=== PATIENT | male | born 1950 | race Caucasian/White ===

== ENCOUNTER 2017-06-16 22:00 | Observation (INO) | payer MEDICARE, BC ==
[2017-06-16] MEDS ORDERED: Aspirin 81 MG Tab.Chew PO ONE (22:11)
[2017-06-16] MEDS ORDERED: Sodium Chloride 0.9% 2.5 ML Syringe FLUSH PRN (22:11)
[2017-06-16] MEDS ORDERED: Sodium Chloride 0.9% 10 ML Syringe FLUSH PRN (22:11)
[2017-06-16] MEDS ORDERED: Nitroglycerin 2% Oint 1 GM UD Packet TOP ONE (22:11)
--- NOTE | 2017-06-16 22:15 | EDM.PDOC ---
ED HPI GENERAL MEDICAL PROBLEM - General Chief Complaint: Chest Pain Stated Complaint: POSSIBLE HEART ATTACK Time Seen by Provider: 06/16/17 22:04 - History of Present Illness INITIAL COMMENTS - FREE TEXT/NARRATIVE: HISTORY AND PHYSICAL: History of present illness: The patient is a 67-year-old male who follows in our clinic and has a history of diabetes hypercholesterolemia hypertension but has never had any cardiac problems or pulmonary problems and presents with episodic left and mid chest pain that squeezing like in character. The patient has had 4 total episodes of this discomfort starting on evening each episode lasting about an hour in duration. The patient states it occurs at nighttime and he normally will take Tums some Motrin and Tylenol and will go away. Tonight he came in because it was the fourth episode and he was concerned and the presentation was similar with sudden onset of left and mid chest pain pressure that radiates to both shoulders associated with diaphoresis shortness of breath but no nausea or vomiting. The patient states the pain tonight with an 8-9/10 and currently is a 0. He did his usual medications for this discomfort as described above. The patient has never done cardiac testing before but does have a father who had heart disease and at 70 because of heart problems. He has no social history and follows regularly in our clinic. He has no leg pain or swelling no upper respiratory symptoms and no trauma. The pain did not radiate to his arms or his jaw/back. The patient did not take any aspirin prior to arrival. The patient states that tonight when he was having the discomfort he bent over and he felt somewhat lightheaded and he thought he might pass out but he did not pass out. Patient denies any focal neurologic changes or weaknesses in extremities Review of systems: As per history of present illness and below otherwise all systems reviewed and negative. Past medical history: As per history of present illness and as reviewed below otherwise noncontributory. Surgical history: As per history of present illness and as reviewed below otherwise noncontributory. Social history: No reported history of drug or alcohol abuse. Family history: As per history of present illness and as reviewed below otherwise noncontributory. Physical exam: Gen.: Well-developed well-nourished male who is nontoxic and speaking clearly and easily in the ED and vital signs have been reviewed by me HEENT: Atraumatic, normocephalic, pupils reactive, negative for conjunctival pallor or scleral icterus, mucous membranes moist, throat clear, neck supple, nontender, trachea midline. Lungs: Clear to auscultation, breath sounds equal bilaterally, chest nontender. Heart: S1S2, regular, negative for clicks, rubs, or JVD. Abdomen: Soft, nondistended, nontender. Negative for masses or hepatosplenomegaly. Negative for costovertebral tenderness. Pelvis: Stable nontender. Genitourinary: Deferred. Rectal: Deferred. Extremities: Atraumatic, negative for cords or calf pain. Neurovascular unremarkable. no pedal edema or leg asymmetry Neuro: Awake, alert, oriented. Cranial nerves II through XII unremarkable. Cerebellum unremarkable. Motor and sensory unremarkable throughout. Exam nonfocal. Skin: No rashes or lesions normal turgor diaphoresis Diagnostics: EKG chest x-ray CBC CMP amylase lipase troponin INR Therapeutics: IV O2 monitor nitro paste aspirin 2345: TESTING results were discussed with the patient and family at bedside. The patient has not had any chest pain while in the ED. Case was also discussed with our hospitalist who accepts the patient for admission. The patient is also agreeable to this Impression: Chest pain rule out ACS Definitive disposition and diagnosis as appropriate pending reevaluation and review of above. Left Chest Pain Score (Numeric/FACES): 6 - Related Data Allergies Allergy/AdvReac Type Severity Reaction Status Date / Time Penicillins Allergy Stomach Verified 06/16/17 22:32 Upset Home Meds: Home Meds Aspirin [[place] Aspirin] 81 mg PO DAILY 12/29/15 [History] Calcium Carbonate/Vitamin D3 [Calcium 1,000 + D3 Caplet] 1 tab PO DAILY [History] Cholecalciferol (Vitamin D3) [Vitamin D3] 1,000 units PO DAILY 12/29/15 [History ] Fish Oil/[place]-3 Fatty Acids [Fish Oil 1,000 MG] 1,000 mg PO DAILY 12/29/15 [ History] Fluticasone Propionate [Flonase] 1 spray NASBOTH BEDTIME PRN 12/29/15 [History] Gemfibrozil [Lopid] 600 mg PO BID 12/29/15 [History] Insulin Aspart [Novolog Flexpen] 1 units SUBCUT TIDMEALS 12/29/15 [History] Insulin Detemir [Levemir Flextouch] 50 units SUBCUT BEDTIME 12/29/15 [History] Multivits-Minerals/FA/Lycopene [One Daily Tablet] 1 tab PO DAILY 12/29/15 [ History] atorvaSTATin [Lipitor] 20 mg PO BEDTIME 12/29/15 [History] metFORMIN HCl [Metformin HCl] 1,000 mg PO BID 12/29/15 [History] Past Medical History Other HEENT History: wears glasses Cardiovascular History: Reports: High Cholesterol Respiratory History: Reports: None Gastrointestinal History: Reports: GERD Musculoskeletal History: Reports: Arthritis, Back Pain, Chronic Neurological History: Reports: None Psychiatric History: Reports: None Endocrine/Metabolic History: Reports: IDDM Hematologic History: Reports: None Immunologic History: Reports: None Oncologic (Cancer) History: Reports: Prostate Dermatologic History: Reports: None - Past Surgical History GI Surgical History: Reports: Cholecystectomy, Colonoscopy, Hernia Repair/Other Musculoskeletal Surgical History: Reports: Arthroscopic Knee, Shoulder Surgery Social & Family History - Tobacco Use Smoking Status *Q: Never Smoker - Recreational Drug Use Recreational Drug Use: No Drug Use in Last 12 Months: No ED ROS GENERAL - Review of Systems Review Of Systems: ROS reveals no pertinent complaints other than HPI. ED EXAM, GENERAL - Physical Exam Exam: See Below (See dictation) Course - Vital Signs Last Recorded V/S: Last Vital Signs Temp 35.7 C 06/16/17 22:04 Pulse 61 06/16/17 22:29 Resp 17 06/16/17 22:29 BP 185/99 H 06/16/17 22:29 Pulse Ox 100 06/16/17 22:29 - Orders/Labs/Meds Orders: Active Orders 24 hr Category Date Time Status Patient Status [ADT] Stat ADT 06/16/17 23:49 Ordered Cardiac Monitoring [RC] . DIRECTED Care 06/16/17 22:10 Active EKG Documentation Completion [RC] STAT Care 06/16/17 22:10 Active Oxygen Therapy, ED [RC] ASDIRECTED Care 06/16/17 22:10 Active Pulse Oximetry [RC] ASDIRECTED Care 06/16/17 22:10 Active Chest 1V Frontal [CR] Stat Exams 06/16/17 22:11 Taken Sodium Chloride 0.9% [Saline Flush] Med 06/16/17 22:11 Active 10 ml FLUSH ASDIRECTED PRN Sodium Chloride 0.9% [Saline Flush] Med 06/16/17 22:11 Active 2.5 ml FLUSH ASDIRECTED PRN Saline Lock Insert [OM.PC] Stat Oth 06/16/17 22:10 Ordered Medication Orders Sodium Chloride (Saline Flush) 10 ml FLUSH ASDIRECTED PRN PRN Reason: Keep Vein Open Last Admin: 06/16/17 22:27 Dose: 10 ml Sodium Chloride (Saline Flush) 2.5 ml FLUSH ASDIRECTED PRN PRN Reason: Keep Vein Open Last Admin: 06/16/17 22:27 Dose: 2.5 ml Labs: Laboratory Tests 06/16/17 06/16/17 06/16/17 Range/Units 22:17 22:17 22:17 WBC 5.13 (4.0-11.0) K/uL RBC 4.30 L (4.50-5.90) M/uL Hgb 13.9 (13.0-17.0) g/dL Hct 39.5 (38.0-50.0) % MCV 91.9 (80.0-98.0) fL MCH 32.3 H (27.0-32.0) pg MCHC 35.2 (31.0-37.0) g/dL RDW Std Deviation 43.0 (28.0-62.0) fl RDW Coeff of Lisa 13 (11.0-15.0) % Plt Count 212 (150-400) K/uL MPV 11.00 (7.40-12.00) fL Neut % (Auto) 47.2 L (48.0-80.0) % Lymph % (Auto) 40.7 H (16.0-40.0) % [place] % (Auto) 9.4 (0.0-15.0) % Eos % (Auto) 2.5 (0.0-7.0) % Baso % (Auto) 0.2 (0.0-1.5) % Neut # (Auto) 2.4 (1.4-5.7) K/uL Lymph # (Auto) 2.1 (0.6-2.4) K/uL [place] # (Auto) 0.5 (0.0-0.8) K/uL Eos # (Auto) 0.1 (0.0-0.7) K/uL Baso # (Auto) 0.0 (0.0-0.1) K/uL Nucleated RBC % 0.0 /100WBC Nucleated RBCs # 0 K/uL INR 1.08 (0.86-1.11) Sodium 140 (136-146) mmol/L Potassium 3.9 (3.5-5.1) mmol/L Chloride 105 (98-110) mmol/L Carbon Dioxide 27 (21-31) mmol/L BUN 22 (6.0-23.0) mg/dL Creatinine 1.0 (0.6-1.5) mg/dL Est Cr Clr Drug Dosing 70.70 mL/min Estimated GFR (MDRD) > 60.0 ml/min Glucose 269 H (60-110) mg/dL Calcium 9.7 (8.8-10.8) mg/dL Total Bilirubin 0.4 (0.1-1.5) mg/dL AST 22 (5-40) IU/L ALT 23 (8-54) IU/L Alkaline Phosphatase 64 (40-150) Troponin I (0.0-0.29) NG/ML Total Protein 7.5 (6.0-8.0) g/dL Albumin 4.2 (3.4-4.8) g/dL Globulin 3.3 (2.0-3.5) g/dL Albumin/Globulin Ratio 1.3 (1.3-2.8) Amylase 58 (10-90) U/L Lipase 55 (7-80) U/L 06/16/ Range/Units 22:17 WBC (4.0-11.0) K/uL RBC (4.50-5.90) M/uL Hgb (13.0-17.0) g/dL Hct (38.0-50.0) % MCV (80.0-98.0) fL MCH (27.0-32.0) pg MCHC (31.0-37.0) g/dL RDW Std Deviation (28.0-62.0) fl RDW Coeff of Lisa (11.0-15.0) % Plt Count (150-400) K/uL MPV (7.40-12.00) fL Neut % (Auto) (48.0-80.0) % Lymph % (Auto) (16.0-40.0) % [place] % (Auto) (0.0-15.0) % Eos % (Auto) (0.0-7.0) % Baso % (Auto) (0.0-1.5) % Neut # (Auto) (1.4-5.7) K/uL Lymph # (Auto) (0.6-2.4) K/uL [place] # (Auto) (0.0-0.8) K/uL Eos # (Auto) (0.0-0.7) K/uL Baso # (Auto) (0.0-0.1) K/uL Nucleated RBC % /100WBC Nucleated RBCs # K/uL INR (0.86-1.11) Sodium (136-146) mmol/L Potassium (3.5-5.1) mmol/L Chloride (98-110) mmol/L Carbon Dioxide (21-31) mmol/L BUN (6.0-23.0) mg/dL Creatinine (0.6-1.5) mg/dL Est Cr Clr Drug Dosing mL/min Estimated GFR (MDRD) ml/min Glucose (60-110) mg/dL Calcium (8.8-10.8) mg/dL Total Bilirubin (0.1-1.5) mg/dL AST (5-40) IU/L ALT (8-54) IU/L Alkaline Phosphatase (40-150) Troponin I < 0.10 (0.0-0.29) NG/ML Total Protein (6.0-8.0) g/dL Albumin (3.4-4.8) g/dL Globulin (2.0-3.5) g/dL Albumin/Globulin Ratio (1.3-2.8) Amylase (10-90) U/L Lipase (7-80) U/L Meds: Medications Generic Name Dose Route Start Last Admin Trade Name Freq PRN Reason Stop Dose Admin Sodium Chloride 10 ml 06/16/17 22:11 06/16/17 22:27 Saline Flush FLUSH 10 ml ASDIRECTED PRN Administration Keep Vein Open Sodium Chloride 2.5 ml 06/16/17 22:11 06/16/17 22:27 Saline Flush FLUSH 2.5 ml ASDIRECTED PRN Administration Keep Vein Open Discontinued Medications Generic Name Dose Route Start Last Admin Trade Name Anay PRN Reason Stop Dose Admin Aspirin 324 mg 06/16/17 22:11 06/16/17 22:24 Aspirin PO 06/16/17 22:12 324 mg ONETIME ONE Administration Nitroglycerin 1 gm 06/16/17 22:11 06/16/17 22:25 Nitro-Bid 2% TOP 06/16/17 22:12 1 gm ONETIME ONE Administration Departure - Departure Time of Disposition: 23:51 Disposition: Refer to Observation Condition: Good Clinical Impression: Acute coronary syndrome - Discharge Information Forms: ED Department Discharge - My Orders Last 24 Hours: My Active Orders 06/16/17 22:10 Cardiac Monitoring [RC] . DIRECTED EKG Documentation Completion [RC] STAT Oxygen Therapy, ED [RC] ASDIRECTED Pulse Oximetry [RC] ASDIRECTED Saline Lock Insert [OM.PC] Stat 06/16/17 22:11 Chest 1V Frontal [CR] Stat Sodium Chloride 0.9% [Saline Flush] 10 ml FLUSH ASDIRECTED PRN Sodium Chloride 0.9% [Saline Flush] 2.5 ml FLUSH ASDIRECTED PRN 06/16/17 23:49 Patient Status [ADT] Stat - Assessment/Plan Last 24 Hours: My Active Orders 06/16/17 22:10 Cardiac Monitoring [RC] . DIRECTED EKG Documentation Completion [RC] STAT Oxygen Therapy, ED [RC] ASDIRECTED Pulse Oximetry [RC] ASDIRECTED Saline Lock Insert [OM.PC] Stat 06/16/17 22:11 Chest 1V Frontal [CR] Stat Sodium Chloride 0.9% [Saline Flush] 10 ml FLUSH ASDIRECTED PRN Sodium Chloride 0.9% [Saline Flush] 2.5 ml FLUSH ASDIRECTED PRN 06/16/17 23:49 Patient Status [ADT] Stat
[2017-06-16 22:50] LABS: CHLORIDE,CL 105 mmol/L (98-110); SODIUM,NA 140 mmol/L (136-146)
[2017-06-17] MEDS ORDERED: Ondansetron 4 MG/2 ML SDV IVPUSH PRN (00:38)
[2017-06-17] MEDS ORDERED: Morphine 4 MG/ML Syringe IVPUSH PRN (00:39)
[2017-06-17] MEDS ORDERED: Acetaminophen 500 MG Tab PO PRN (00:39)
[2017-06-17] MEDS ORDERED: Fluticasone Propionate Nasal Spray 16 GM Bottle NASBOTH PRN (00:45)
[2017-06-17] MEDS ORDERED: atorvaSTATin 20 MG Tab PO SCH (01:00)
[2017-06-17] MEDS: Nitroglycerin 2% Oint 1 GM UD Packet TOP SCH ×3 (01:26→12:11)
[2017-06-17] MEDS: Insulin Aspart 100 Units/ML 3 ML Pen SUBCUT SCH ×5 (06:30→20:57)
[2017-06-17] MEDS ORDERED: Insulin Aspart 100 Units/ML 3 ML Pen SUBCUT SCH (07:30)
[2017-06-17] MEDS: metFORMIN 500 MG Tab PO SCH ×2 (08:25→17:13)
[2017-06-17] MEDS: Aspirin 81 MG Tab.EC PO SCH (08:26)
[2017-06-17] MEDS: Fish Oil/Omega-3 Fatty Acids 1 Gm Cap PO SCH (08:26)
[2017-06-17] MEDS: Calcium Carbonate/Vitamin D3 1500 MG-400 Units Tab PO SCH (08:26)
[2017-06-17] MEDS: Cholecalciferol (Vitamin D3) 1,000 Unit Tab PO SCH (08:26)
[2017-06-17] MEDS: atorvaSTATin 20 MG Tab PO SCH (08:26)
[2017-06-17] MEDS: Multivitamins with Iron/Calcium/Folic Acid/Minerals Tab PO SCH (08:26)
[2017-06-17] MEDS: Hydrochlorothiazide 25 MG Tab PO SCH ×2 (12:09→13:00)
[2017-06-17] MEDS: Lisinopril 10 MG Tab PO SCH (12:09)
--- NOTE | 2017-06-17 12:30 | PCM.HP ---
H&P History of Present Illness - General Date of Service: 06/17/17 Admit Problem/Dx: Admission Diagnosis/Problem Admission Diagnosis/Problem Acute coronary syndrome Source of Information: Patient, Family, Provider, RN - History of Present Illness Initial Comments - Free Text/Narative: He was admitted through the ED for chest pain. He has had daily episodes of lightheadedness with dyspnea and some chest discomfort mainly when he leans over. This has been occurring daily for about four days. He has no chest pain now. His troponin in the ED was negative. He was noted to be hypertensive. He has topical nitroglycerin presently. He has dyslipidemia and DM well controlled. Left Chest Pain Score (Numeric/FACES): 6 - Related Data Allergies/Adverse Reactions: Allergies Allergy/AdvReac Type Severity Reaction Status Date / Time Penicillins Allergy Stomach Verified 06/16/17 22:32 Upset Home Medications: Home Meds Aspirin [[place] Aspirin] 81 mg PO DAILY 12/29/15 [History] Calcium Carbonate/Vitamin D3 [Calcium 1,000 + D3 Caplet] 1 tab PO DAILY [History] Cholecalciferol (Vitamin D3) [Vitamin D3] 1,000 units PO DAILY 12/29/15 [History ] Fish Oil/[place]-3 Fatty Acids [Fish Oil 1,000 MG] 1,000 mg PO DAILY 12/29/15 [ History] Fluticasone Propionate [Flonase] 1 spray NASBOTH BEDTIME PRN 12/29/15 [History] Gemfibrozil [Lopid] 600 mg PO BID 12/29/15 [History] Insulin Aspart [Novolog Flexpen] 18 units SUBCUT TIDMEALS 12/29/15 [History] Insulin Detemir [Levemir Flextouch] 50 units SUBCUT BEDTIME 12/29/15 [History] Multivits-Minerals/FA/Lycopene [One Daily Tablet] 1 tab PO DAILY 12/29/15 [ History] atorvaSTATin [Lipitor] 20 mg PO DAILY 12/29/15 [History] metFORMIN HCl [Metformin HCl] 1,000 mg PO BID 12/29/15 [History] Glucosam Sul Na/Chondr Carmen A Na [Glucosamine-Chondroitin Tablet] 1 tab PO DAILY 06/17/17 [History] Past Medical History HEENT History: Reports: Sinusitis Other HEENT History: wears glasses Cardiovascular History: Reports: High Cholesterol. Denies: Heart Failure, Hypertension, [place] Respiratory History: Reports: None. Denies: COPD, Pulmonary Fibrosis Gastrointestinal History: Reports: GERD. Denies: Cirrhosis Genitourinary History: Reports: Prostate Disorder Musculoskeletal History: Reports: Arthritis, Back Pain, Chronic Neurological History: Reports: None. Denies: CVA Psychiatric History: Reports: None Endocrine/Metabolic History: Reports: Diabetes, Type II. Denies: York's Disease Hematologic History: Reports: None Immunologic History: Reports: None. Denies: Immunosuppression Oncologic (Cancer) History: Reports: Prostate Dermatologic History: Reports: None - Infectious Disease History Infectious Disease History: Reports: Chicken Pox, Measles, Mumps - Past Surgical History GI Surgical History: Reports: Cholecystectomy, Colonoscopy, Hernia Repair/Other Other Male Surgeries/Procedures: hx prostate surgery for cancer Musculoskeletal Surgical History: Reports: Arthroscopic Knee, Shoulder Surgery Social & Family History - Family History Family Medical History: Noncontributory Cardiac: Reports: Other (See Below) Other Cardiac Family History: Father at age 70 from heart problem Respiratory: Reports: None GI: Reports: None : Reports: None Neurological: Reports: None Psychiatric: Reports: None Hematologic: Reports: None Immunologic: Reports: None Dermatologic: Reports: None Oncologic: Reports: None - Tobacco Use Smoking Status *Q: Former Smoker Smoking Cessation Information Given Comment: quit smoking at age 21 Second Hand Smoke Exposure: No - Caffeine Use Caffeine Use: Reports: Coffee, Soda - Alcohol Use Alcohol Use in Last Twelve Months: No - Recreational Drug Use Recreational Drug Use: No Drug Use in Last 12 Months: No H&P Review of Systems - Review of Systems: Review Of Systems: See Below General: Denies: Fever, Chills HEENT: Reports: Headaches (with nitroglycerin) Pulmonary: Reports: Shortness of Breath (as per HPI) Cardiovascular: Reports: Chest Pain (as per HPI; no chest pain now) Gastrointestinal: Denies: Abdominal Pain, Black Stool, Bloody Stool, Hematochezia, Nausea, Stool Incontinence, Vomiting Genitourinary: Denies: Dysuria, Burning, Hematuria Psychiatric: Denies: Agitation, Hallucinations Neurological: Denies: Seizure Exam - Exam Exam: See Below - Vital Signs Vital Signs: Last Vital Signs Temp 97.0 F 06/17/17 08:00 Pulse 50 L 06/17/17 08:00 Resp 16 06/17/17 08:00 BP 130/71 06/17/17 12:09 Pulse Ox 98 06/17/17 08:00 Weight: 87.8 kg - Exam General: Alert, Oriented, Cooperative HEENT: EOMI, Mucosa Moist & [place] Neck: Supple, Trachea Midline Lungs: Clear to Auscultation, Normal Respiratory Effort Cardiovascular: Regular Rate, Regular Rhythm. No: Systolic Murmur, Diastolic Murmur Abdomen: Soft. No: Distention, Tenderness (Male) Exam: Deferred Rectal (Males) Exam: Deferred Extremities: No: Clubbing, Cyanosis, Edema Neurological: Cranial Nerves Intact, Normal Speech Neuro Extensive - Mental Status: Normal Mood/Affect Neuro Extensive - Motor, Sensory, Reflexes: No: Tongue Deviation (L), Tongue Deviation (R), Dysarthria, Facial palsy (L), Facial Palsy (R), Hemeplagia (R), Hemeplagia (L) - Patient Data Lab Results Last 24 hrs: Laboratory Results - last 24 hr 06/17/17 06/17/17 06/17/17 Range/Units 04:03 04:03 04:16 POC Glucose 100 (60-110) mg/dL Magnesium 1.7 (1.5-2.3) mEq/L Troponin I < 0.10 (0.0-0.29) NG/ML Triglycerides 180 (10-190) mg/dL Cholesterol 157 (131-240) mg/dL LDL Cholesterol, Calc 96 (60-180) mg/dL VLDL Cholesterol 36 (5-55) mg/dL HDL Cholesterol 25 L (40-80) mg/dL Cholesterol/HDL Ratio 6.3 H (3.3-6.0) 06/17/17 06/17/17 Range/Units 09:50 11:49 POC Glucose 155 H (60-110) mg/dL Magnesium (1.5-2.3) mEq/L Troponin I < 0.10 (0.0-0.29) NG/ML Triglycerides (10-190) mg/dL Cholesterol (131-240) mg/dL LDL Cholesterol, Calc (60-180) mg/dL VLDL Cholesterol (5-55) mg/dL HDL Cholesterol (40-80) mg/dL Cholesterol/HDL Ratio (3.3-6.0) Result Diagrams: 06/16/17 22:17 06/16/17 22:17 *Q Meaningful Use (ADM) - VTE *Q VTE Criteria *Q: - Stroke *Q Stroke Criteria *Q: - AMI *Q AMI Criteria *Q: - Problem List (1) Hypertension SNOMED Code(s): 41232670 ICD Code: I10 - ESSENTIAL (PRIMARY) HYPERTENSION Status: Acute Current Visit: Yes (2) Diabetes mellitus SNOMED Code(s): 70681642 ICD Code: E11.9 - TYPE 2 DIABETES MELLITUS WITHOUT COMPLICATIONS Status: Acute Current Visit: Yes (3) Chest pain SNOMED Code(s): 93784199 ICD Code: R07.9 - CHEST PAIN, UNSPECIFIED Status: Acute Current Visit: Yes Problem List Initiated/Reviewed/Updated: Yes Orders Last 24hrs: Active Orders 24 hr Category Date Time Status Accu Check [Blood Glucose Check, Bedside] [] Care 06/18/17 06:00 Active QIDACANDBED Communication Order [] ROUTINE Care 06/17/17 00:38 Active Telemetry Monitoring [Cardiac Monitoring] [] Q8H Care 06/17/17 00:34 Active ADA Diabetic [[place] [employer] Diet] [DIET Diet 06/17/17 Breakfast Active ] Acetaminophen [Tylenol Extra Strength] Med 06/17/17 00:39 Active 500 mg PO Q4H PRN Aspirin [Halfprin] Med 06/17/17 09:00 Active 81 mg PO DAILY Calcium Carbonate/Vitamin D3 [Caltrate 600+D 1500 MG- Med 06/17/17 09:00 Active 400 Units] 1 tab PO DAILY Cholecalciferol (Vitamin D3) [Vitamin D3] Med 06/17/17 09:00 Active 1,000 units PO DAILY Fish Oil/[place]-3 Fatty Acids [Fish Oil] Med 06/17/17 09:00 Active 1 gm PO DAILY Fluticasone Propionate [Flonase] Med 06/17/17 00:45 Active 0 gm NASBOTH BEDTIME PRN Gemfibrozil [Lopid] Med 06/17/17 21:00 Active 600 mg PO BID Hydrochlorothiazide Med 06/17/17 12:00 Active 25 mg PO BIDDIURETIC Insulin Aspart [NovoLOG] Med 06/17/17 06:00 Active See Protocol SUBCUT ACBED Insulin Detemir [Levemir] Med 06/17/17 21:00 Active 50 unit SUBCUT BEDTIME Lisinopril [Prinivil] Med 06/17/17 12:00 Active 20 mg PO DAILY Morphine Med 06/17/17 00:39 Active 4 mg IVPUSH Q2H PRN Multivitamins w-Iron/Ca/FA/Min [Thera M Plus] Med 06/17/17 09:00 Active 1 tab PO DAILY Nitroglycerin [Nitro-Bid 2%] Med 06/17/17 00:45 Active 2 gm TOP Q6H Ondansetron [Zofran] Med 06/17/17 00:38 Active 4 mg IVPUSH Q4H PRN Patient's Own Medication [Ptom] Med 06/18/17 09:00 Active 1 each PO DAILY atorvaSTATin [Lipitor] Med 06/17/17 09:00 Active 20 mg PO DAILY metFORMIN [Glucophage] Med 06/17/17 08:00 Active 1,000 mg PO BIDMEALS Medication Orders Acetaminophen (Tylenol Extra Strength) 500 mg PO Q4H PRN PRN Reason: pain Last Admin: 06/17/17 11:18 Dose: 500 mg Aspirin (Halfprin) 81 mg PO DAILY [facility] Last Admin: 06/17/17 08:26 Dose: 81 mg Atorvastatin Calcium (Lipitor) 20 mg PO DAILY [facility] Last Admin: 06/17/17 08:26 Dose: 20 mg Calcium Carbonate (Caltrate 600+D 1500 Mg-400 Units) 1 tab PO DAILY [facility] Last Admin: 06/17/17 08:26 Dose: 1 tab Cholecalciferol (Vitamin D3) 1,000 units PO DAILY [facility] Last Admin: 06/17/17 08:26 Dose: 1,000 units Fish Oil (Fish Oil) 1 gm PO DAILY [facility] Last Admin: 06/17/17 08:26 Dose: 1 gm Fluticasone Propionate (Flonase) 0 gm NASBOTH BEDTIME PRN PRN Reason: Other Gemfibrozil (Lopid) 600 mg PO BID [facility] Hydrochlorothiazide (Hydrochlorothiazide) 25 mg PO BIDDIURETIC [facility] Last Admin: 06/17/17 12:09 Dose: 25 mg Insulin Aspart (Novolog) 0 unit SUBCUT ACBED ASHWINI PRN Reason: Protocol Last Admin: 06/17/17 12:08 Dose: 2 unit Admin: 06/17/17 06:53 Dose: Not Given Admin: 06/17/17 06:30 Dose: Not Given Insulin Detemir (Levemir) 50 unit SUBCUT BEDTIME [facility] Lisinopril (Prinivil) 20 mg PO DAILY [facility] Last Admin: 06/17/17 12:09 Dose: 20 mg Metformin HCl (Glucophage) 1,000 mg PO BIDMEALS [facility] Last Admin: 06/17/17 08:25 Dose: 1,000 mg Morphine Sulfate (Morphine) 4 mg IVPUSH Q2H PRN PRN Reason: Chest Pain Multivitamins/Minerals (Thera M Plus) 1 tab PO DAILY [facility] Last Admin: 06/17/17 08:26 Dose: 1 tab Nitroglycerin (Nitro-Bid 2%) 2 gm TOP Q6H [facility] Last Admin: 06/17/17 12:11 Dose: Admin: 06/17/17 06:38 Dose: 2 gm Admin: 06/17/17 01:26 Dose: 2 gm Ondansetron HCl (Zofran) 4 mg IVPUSH Q4H PRN PRN Reason: Nausea/Vomiting Glucosam Sul Na/Chondr Carmen A Na [ Glucosamine- Chondroitin T 1 each PO DAILY [facility] Sodium Chloride (Saline Flush) 10 ml FLUSH ASDIRECTED PRN PRN Reason: Keep Vein Open Last Admin: 06/16/17 22:27 Dose: 10 ml Sodium Chloride (Saline Flush) 2.5 ml FLUSH ASDIRECTED PRN PRN Reason: Keep Vein Open Last Admin: 06/16/17 22:27 Dose: 2.5 ml Assessment/Plan Comment:: [place] stress scheduled for [place] for Saturday. lisinopril and HCTZ; stop nitroglycerin today anticipate discharge tomorrow am if blood pressure adequately controlled. Srinivasan De Dios MD
--- NOTE | 2017-06-17 12:53 | CR ---
EXAM DATE: 06/16/17 PATIENT'S AGE: 67 Patient: DAKOTA HOOVER Facility: [place], [place] Site . Site : [id number] Study: XRay Chest [id number]/16/2017 11:07:18 PM Ordering Physician: Doctor Fortune Final Report: INDICATIONS: Chest pain. TECHNIQUE: Chest 1 view portable. COMPARISON: Chest radiograph 10/03/2015. FINDINGS: Low volume exam. No pneumothorax, pleural effusion or airspace consolidation. Mild enlargement of the cardiac silhouette. No evidence of pulmonary edema. Upper abdomen and osseous structures show no acute abnormality. IMPRESSION: No evidence of acute cardiopulmonary disease. Dictated by Calvin Hinds MD @ 06/16/2017 11:28:54 PM Dictated by: Calvin Hinds MD @ 06/16/2017 23:28:59 (Electronic Signature) Report Signed by Proxy. [facility]ENTERJenelle
[2017-06-17] MEDS ORDERED: Insulin Detemir 100 Units/ML 3 ML Pen SUBCUT SCH (21:00)
[2017-06-17] MEDS: Gemfibrozil 600 MG Tab PO SCH (21:05)
[2017-06-18] MEDS: Insulin Aspart 100 Units/ML 3 ML Pen SUBCUT SCH ×2 (06:37→11:23)
[2017-06-18 08:01] VITALS: BP 139/76
[2017-06-18] MEDS: Fish Oil/Omega-3 Fatty Acids 1 Gm Cap PO SCH (08:25)
[2017-06-18] MEDS: Aspirin 81 MG Tab.EC PO SCH (08:25)
[2017-06-18] MEDS: Calcium Carbonate/Vitamin D3 1500 MG-400 Units Tab PO SCH (08:25)
[2017-06-18] MEDS: metFORMIN 500 MG Tab PO SCH (08:25)
[2017-06-18] MEDS: Hydrochlorothiazide 25 MG Tab PO SCH (08:25)
[2017-06-18] MEDS: atorvaSTATin 20 MG Tab PO SCH (08:26)
[2017-06-18] MEDS: Multivitamins with Iron/Calcium/Folic Acid/Minerals Tab PO SCH (08:26)
[2017-06-18] MEDS: Cholecalciferol (Vitamin D3) 1,000 Unit Tab PO SCH (08:26)
[2017-06-18] MEDS: Gemfibrozil 600 MG Tab PO SCH (08:26)
[2017-06-18] MEDS: Lisinopril 10 MG Tab PO SCH (08:27)
[2017-06-18] MEDS ORDERED: CHONDR SU A NA PO SCH (09:00)
[2017-06-18] MEDS ORDERED: [UNRECOGNIZED DRUG - OTHER] PO SCH (09:00)
--- NOTE | 2017-06-18 10:57 | PCM.DCSUM1 ---
Discharge Summary - Hospital Course Brief History: he was admitted for chest pain and hypertension. - Discharge Data Discharge Date: 06/18/17 Discharge Disposition: Home, Self-Care 01 Condition: Fair - Discharge Diagnosis/Problem(s) (1) Hypertension SNOMED Code(s): 12433888 ICD Code: I10 - ESSENTIAL (PRIMARY) HYPERTENSION Status: Acute Current Visit: Yes (2) Diabetes mellitus SNOMED Code(s): 44877294 ICD Code: E11.9 - TYPE 2 DIABETES MELLITUS WITHOUT COMPLICATIONS Status: Acute Current Visit: Yes (3) Chest pain SNOMED Code(s): 63399419 ICD Code: R07.9 - CHEST PAIN, UNSPECIFIED Status: Acute Current Visit: Yes - Patient Summary/Data Hospital Course: He was started on antihypertensives. He feels back to normal at discharge. His troponins were normal. His blood sugar at discharge is 116 mg/dl. His blood pressure at discharge is 139/86 mm Hg He is discharged home on aspirin 81 mg daily, lisinopril 40 mg q am and HCTZ 25 mg qam He is to follow up with Dr Mccauley after stress test which is being arranged through [facility] in [place], [place]. Srinivasan De Dios MD - Discharge Plan Home Medications: Home Meds Aspirin [Gem Aspirin] 81 mg PO DAILY 12/29/15 [History] Calcium Carbonate/Vitamin D3 [Calcium 1,000 + D3 Caplet] 1 tab PO DAILY [History] Cholecalciferol (Vitamin D3) [Vitamin D3] 1,000 units PO DAILY 12/29/15 [History ] Fish Oil/[place]-3 Fatty Acids [Fish Oil 1,000 MG] 1,000 mg PO DAILY 12/29/15 [ History] Fluticasone Propionate [Flonase] 1 spray NASBOTH BEDTIME PRN 12/29/15 [History] Gemfibrozil [Lopid] 600 mg PO BID 12/29/15 [History] Insulin Aspart [Novolog Flexpen] 18 units SUBCUT TIDMEALS 12/29/15 [History] Insulin Detemir [Levemir Flextouch] 50 units SUBCUT BEDTIME 12/29/15 [History] Multivits-Minerals/FA/Lycopene [One Daily Tablet] 1 tab PO DAILY 12/29/15 [ History] atorvaSTATin [Lipitor] 20 mg PO DAILY 12/29/15 [History] metFORMIN HCl [Metformin HCl] 1,000 mg PO BID 12/29/15 [History] Glucosam Sul Na/Chondr Carmen A Na [Glucosamine-Chondroitin Tablet] 1 tab PO DAILY 06/17/17 [History] Patient Handouts: Chest Wall Pain, [id number], Acute Coronary Syndrome Referrals: Clayton Frias DO [Physician] - 06/28/17 2:30 pm - General Info Date of Service: 06/18/17 - Patient Data Vitals - Most Recent: Last Vital Signs Temp 97.5 F 06/18/17 08:00 Pulse 68 06/18/17 08:00 Resp 22 H 06/18/17 08:00 BP 139/76 06/18/17 08:27 Pulse Ox 98 06/18/17 08:00 Weight - Most Recent: 87.8 kg I&O - Last 24 hours: Intake & Output 06/17/17 06/18/17 06/18/17 22:59 06:59 14:59 Intake Total 1220 890 Output Total 725 1500 Balance 495 -610 Lab Results - Last 24 hrs: Laboratory Results - last 24 hr 06/17/17 06/17/17 06/17/17 Range/Units 11:49 16:44 20:40 POC Glucose 155 H 133 H 180 H (60-110) mg/dL 06/18/17 Range/Units 05:56 POC Glucose 116 H (60-110) mg/dL Med Orders - Current: Current Medications Acetaminophen (Tylenol Extra Strength) 500 mg PO Q4H PRN PRN Reason: pain Last Admin: 06/17/17 11:18 Dose: 500 mg Aspirin (Halfprin) 81 mg PO DAILY [facility] Last Admin: 06/18/17 08:25 Dose: 81 mg Atorvastatin Calcium (Lipitor) 20 mg PO DAILY [facility] Last Admin: 06/18/17 08:26 Dose: 20 mg Calcium Carbonate (Caltrate 600+D 1500 Mg-400 Units) 1 tab PO DAILY [facility] Last Admin: 06/18/17 08:25 Dose: 1 tab Cholecalciferol (Vitamin D3) 1,000 units PO DAILY [facility] Last Admin: 06/18/17 08:26 Dose: 1,000 units Fish Oil (Fish Oil) 1 gm PO DAILY [facility] Last Admin: 06/18/17 08:25 Dose: 1 gm Fluticasone Propionate (Flonase) 0 gm NASBOTH BEDTIME PRN PRN Reason: Other Gemfibrozil (Lopid) 600 mg PO BID [facility] Last Admin: 06/18/17 08:26 Dose: 600 mg Hydrochlorothiazide (Hydrochlorothiazide) 25 mg PO BIDDIURETIC [facility] Last Admin: 06/18/17 08:25 Dose: 25 mg Insulin Aspart (Novolog) 0 unit SUBCUT ACBED [facility] PRN Reason: Protocol Last Admin: 06/18/17 06:37 Dose: Not Given Insulin Detemir (Levemir) 50 unit SUBCUT BEDTIME [facility] Last Admin: 06/17/17 21:01 Dose: 50 units Lisinopril (Prinivil) 20 mg PO DAILY [facility] Last Admin: 06/18/17 08:27 Dose: 20 mg Metformin HCl (Glucophage) 1,000 mg PO BIDMEALS [facility] Last Admin: 06/18/17 08:25 Dose: 1,000 mg Morphine Sulfate (Morphine) 4 mg IVPUSH Q2H PRN PRN Reason: Chest Pain Multivitamins/Minerals (Thera M Plus) 1 tab PO DAILY [facility] Last Admin: 06/18/17 08:26 Dose: 1 tab Ondansetron HCl (Zofran) 4 mg IVPUSH Q4H PRN PRN Reason: Nausea/Vomiting Glucosam Sul Na/Chondr Carmen A Na [ Glucosamine- Chondroitin T 1 each PO DAILY [facility] Last Admin: 06/18/17 08:27 Dose: Not Given Sodium Chloride (Saline Flush) 10 ml FLUSH ASDIRECTED PRN PRN Reason: Keep Vein Open Last Admin: 06/16/17 22:27 Dose: 10 ml Sodium Chloride (Saline Flush) 2.5 ml FLUSH ASDIRECTED PRN PRN Reason: Keep Vein Open Last Admin: 06/16/17 22:27 Dose: 2.5 ml Discontinued Medications Aspirin (Aspirin) 324 mg PO ONETIME ONE Stop: 06/16/17 22:12 Last Admin: 06/16/17 22:24 Dose: 324 mg Atorvastatin Calcium (Lipitor) 20 mg PO BEDTIME [facility] Last Admin: 06/17/17 01:34 Dose: Not Given Insulin Aspart (Novolog) 0 unit SUBCUT ACBREAKFASTANDBED [facility] PRN Reason: Protocol Stop: 06/17/17 01:22 Nitroglycerin (Nitro-Bid 2%) 1 gm TOP ONETIME ONE Stop: 06/16/17 22:12 Last Admin: 06/16/17 22:25 Dose: 1 gm Nitroglycerin (Nitro-Bid 2%) 2 gm TOP Q6H ASHWINI Last Admin: 06/17/17 12:11 Dose: Not Given *Q Meaningful Use (DIS) - VTE *Q VTE Criteria *Q: - Stroke *Q Stroke Criteria *Q: - AMI *Q AMI Criteria *Q:
== END 2017-06-18 12:15 | disposition home or self-care (01) ==
LOC: MW.ED 22:00 → MW.MS 23:49
PROVIDERS: ADMIT Family Medicine; ATTEND Family Medicine
DX: I10 Essential (primary) hypertension (principal); E11.9 Type 2 diabetes mellitus without complications; R07.9 Chest pain, unspecified; E78.00 Pure hypercholesterolemia, unspecified; K21.9 Gastro-esophageal reflux disease without esophagitis; Z88.0 Allergy status to penicillin; Z79.82 Long term (current) use of aspirin; Z79.84 Long term (current) use of oral hypoglycemic drugs; Z79.899 Other long term (current) drug therapy; Z79.4 Long term (current) use of insulin; Z90.49 Acquired absence of other specified parts of digestive tract; Z98.890 Other specified postprocedural states; Z87.891 Personal history of nicotine dependence
CPT/HCPCS: 36415; 71010; 80053; 80061; 82150; 82962; 83690; 83735; 84484; 85025; 85610; 93005; 99285; A9270; G0378; J1815; 99284

== ENCOUNTER 2021-05-26 07:39 | Day surgery (SDC) | payer MEDICARE, BC ==
[~2021-05-26 07:39] MED LIST: Lactated Ringers 1,000 ML IV SCH; propofoL 50 ML ONE
[2021-05-26] MEDS ORDERED: Lidocaine 2% 5 ML SDV ONE (07:43)
[2021-05-26] MEDS ORDERED: Ondansetron 4 MG/2 ML SDV ONE (07:44)
--- NOTE | 2021-05-26 07:51 | PCM.PREANE ---
Preanesthetic Assessment - Anesthesia/Transfusion/Family Hx Anesthesia History: Prior Anesthesia Reaction Other Type of Anesthesia Reaction Comment: pt states he has a hard time coming out of anesthesia Transfusion History: No Prior Transfusion(s) - Review of Systems General: No Symptoms Pulmonary: No Symptoms Cardiovascular: No Symptoms Gastrointestinal: Abdominal Pain Neurological: No Symptoms Other: Reports: Diabetes - Physical Assessment NPO Status Date: 05/26/21 NPO Status Time: 00:00 Height: 5 ft 8 in Weight: 200 lb ASA Class: 3 Mental Status: Alert & Oriented x3 Airway Class: Mallampati = 2 Dentition: Reports: Normal Dentition ROM/Head Extension: Full Lungs: Clear to Auscultation, Normal Respiratory Effort Cardiovascular: Regular Rate, Regular Rhythm - Allergies Allergies/Adverse Reactions: Allergies Allergy/AdvReac Type Severity Reaction Status Date / Time adhesive Allergy Rash Verified 05/23/21 12:13 latex Allergy Rash Verified 05/23/21 12:13 Penicillins Allergy Stomach Verified 05/23/21 12:13 Upset - Acknowledgements Anesthesia Type Planned: General Anesthesia Pt an Appropriate Candidate for the Planned Anesthesia: Yes Alternatives and Risks of Anesthesia Discussed w Pt/Guardian: Yes Pt/Guardian Understands and Agrees with Anesthesia Plan: Yes PreAnesthesia Questionnaire HEENT History: Reports: Allergic Rhinitis, Cataract Other HEENT History: wears glasses, has bilateral hearing aides, has upper and lower permanent dental bridges Cardiovascular History: Reports: CAD, High Cholesterol, Hypertension Respiratory History: Reports: None Gastrointestinal History: Reports: Colon Polyp, Diverticulosis, GERD Genitourinary History: Reports: Prostate Disorder Other Genitourinary History: hx of prostate cancer Musculoskeletal History: Reports: Arthritis, Back Pain, Chronic, Fracture Other Musculoskeletal History: hx of herniated discs, hx of fx back Neurological History: Reports: Concussion Psychiatric History: Reports: None Endocrine/Metabolic History: Reports: Diabetes, Type II, IDDM Hematologic History: Reports: None Immunologic History: Reports: None Oncologic (Cancer) History: Reports: Prostate Dermatologic History: Reports: None - Infectious Disease History Infectious Disease History: Reports: Chicken Pox, Measles, Mumps - Past Surgical History Head Surgeries/Procedures: Reports: None HEENT Surgical History: Reports: Cataract Surgery, Naso-Sinus Surgery, Tonsillectomy Other HEENT Surgeries/Procedures: hx sinus surgery Cardiovascular Surgical History: Reports: Coronary Artery Stent Other Cardiovascular Surgeries/Procedures: Angioplasty with 1 stent placed 3 years ago, Angioplasty with 3 stents placed 2 years ago- denies chest pain and SOB Respiratory Surgical History: Reports: None GI Surgical History: Reports: Cholecystectomy, Colonoscopy, Hernia Repair/Other Other GI Surgeries/Procedures: hx of inguinal hernia repair x6 Male Surgical History: Reports: Prostatectomy Other Male Surgeries/Procedures: hx prostate surgery for cancer Endocrine Surgical History: Reports: None Neurological Surgical History: Reports: None Musculoskeletal Surgical History: Reports: Arthroscopic Knee, ORIF, Shoulder Surgery, Other (See Below) Other Musculoskeletal Surgeries/Procedures:: bilateral RTCR- left shoulder has hardware, bone spurs removed from elbow, ORIF fingers Other Oncologic Surgeries/Procedures: Prostatectomy Dermatological Surgical History: Reports: None - SUBSTANCE USE Tobacco Use Status *Q: Former Tobacco User Tobacco Use Within Last Twelve Months: No Recreational Drug Use History: No - HOME MEDS Home Medications: Home Meds Aspirin [[place] Aspirin EC] 81 mg PO DAILY 12/29/15 [History] Cholecalciferol (Vitamin D3) [Vitamin D3] 1,000 units PO DAILY 12/29/15 [History] Fluticasone Propionate [Flonase] 1 spray NASBOTH BEDTIME PRN 12/29/15 [History] Gemfibrozil [Lopid] 600 mg PO QAM 12/29/15 [History] Insulin Detemir [Levemir Flextouch] 62 units SUBCUT BEDTIME 12/29/15 [History] atorvaSTATin [Lipitor] 40 mg PO DAILY 12/29/15 [History] metFORMIN HCl [Metformin HCl] 1,000 mg PO BID 12/29/15 [History] Acetaminophen 1 - 2 tab PO Q4H PRN 05/23/21 [History] Chlorthalidone 25 mg PO DAILY 05/23/21 [History] Clopidogrel Bisulfate [Clopidogrel] 75 mg PO DAILY 05/23/21 [History] Fish Oil/[place]-3 Fatty Acids [Fish Oil 1,000 MG] 2 gm PO DAILY 05/23/21 [History] Glucosam/Chond-Msm1/C/Fred/Bor [Lmpnlhy-Vzysg-QBA Complex Cplt] 1 cap PO DAILY 05/23/21 [History] Insulin Aspart [NovoLOG] 24 unit SQ QID 05/23/21 [History] Losartan Potassium 100 mg PO QAM 05/23/21 [History] Metoprolol Tartrate 12.5 mg PO BEDTIME 05/23/21 [History] Multivit-Min/Folic/Vit K/Lycop [Men's 50 Plus Multivitamin Tab] 1 tab PO DAILY 05/23/21 [History] Nitroglycerin 1 tab SL Q5M PRN MDD 3 tabs 05/23/21 [History] Potassium Gluconate [Potassium] 99 mg PO DAILY 05/23/21 [History] Spironolactone 50 mg PO DAILY 05/23/21 [History] Zinc 50 mg PO DAILY 05/23/21 [History] - CURRENT (IN HOUSE) MEDS Current Meds: Current Medications Lactated Ringer's (Ringers, Lactated) 1,000 mls @ 125 mls/hr IV ASDIRECTED ASHWINI Discontinued Medications Propofol (Diprivan 50 Ml) Confirm Administered Dose 50 mls @ as directed .ROUTE .STK-MED ONE Stop: 05/26/21 06:54 Lidocaine (Lidocaine 2% 5 Ml Sdv) Confirm Administered Dose 5 ml .ROUTE .STK-MED ONE Stop: 05/26/21 07:44 Ondansetron HCl (Ondansetron 4 Mg/2 Ml Sdv) Confirm Administered Dose 4 mg .ROUTE .STK-MED ONE Stop: 05/26/21 07:45
--- NOTE | 2021-05-26 09:11 | PCM48HPAN ---
Post Anesthesia Note - EVALUATION WITHIN 48HRS OF ANESTHETIC Vital Signs in Normal Range: Yes Patient Participated in Evaluation: Yes Respiratory Function Stable: Yes Airway Patent: Yes Cardiovascular Function Stable: Yes Hydration Status Stable: Yes Pain Control Satisfactory: Yes Nausea and Vomiting Control Satisfactory: Yes Mental Status Recovered: Yes Vital Signs: Last Vital Signs Temp 97.0 F 05/26/21 08:08 Pulse 66 05/26/21 08:08 Resp 16 05/26/21 08:08 BP 117/66 05/26/21 08:08 Pulse Ox 99 05/26/21 08:08
--- NOTE | 2021-05-26 09:11 | PCM.POSTAN ---
POST ANESTHESIA ASSESSMENT - MENTAL STATUS Mental Status: Alert, Oriented - VITAL SIGNS Vital Signs: Last Vital Signs Temp 97.0 F 05/26/21 08:08 Pulse 66 05/26/21 08:08 Resp 16 05/26/21 08:08 BP 117/66 05/26/21 08:08 Pulse Ox 99 05/26/21 08:08 - RESPIRATORY Respiratory Status: Respiratory Rate WNL, Airway Patent, O2 Saturation Stable - CARDIOVASCULAR CV Status: Pulse Rate WNL, Blood Pressure Stable - GASTROINTESTINAL GI Status: No Symptoms - POST OP HYDRATION Hydration Status: Adequate & Stable
[2021-05-26] MEDS ORDERED: Lactated Ringers 1,000 ML IV SCH (09:15)
--- NOTE | 2021-05-26 09:16 | PCM.OPNOTE ---
- General Post-Op/Procedure Note Date of Surgery/Procedure: 05/26/21 Operative Procedure(s): Colonoscopy Pre Op Diagnosis: Personal history of colon polyps Post-Op Diagnosis: No evidence of neoplasia Anesthesia Technique: MAC (ASA III) Primary Surgeon: Juan Saunders Segment Block Layer: Harleen Cueva Condition: Good Free Text/Narrative:: DICTATION [id number] CPT CODE [id number]
--- NOTE | 2021-05-26 10:49 | OR ---
SURGEON: Juan Saunders M.D. DATE OF PROCEDURE: 05/26/2021 OPERATION PERFORMED: Colonoscopy. PRIMARY SURGEON: Juan Saunders M.D. COSMETICIAN: BIANKA Miranda student. ANESTHESIA: MAC. ASA CLASSIFICATION: III. PREOPERATIVE DIAGNOSIS: Personal history of colon polyps. POSTOPERATIVE DIAGNOSIS: No evidence of neoplasia. DESCRIPTION OF PROCEDURE: The patient was taken to the endoscopy room and positioned on the endoscopy table in the left lateral decubitus position. Time-out was called for appropriate identification of the patient and procedure. Monitored anesthesia care was provided. The colonoscope was inserted into the rectum and advanced with minimal difficulty to the cecum. The cecum was identified by internal landmarks and external pressure. The colonoscope was retroflexed to visualize the ascending colon from below, then straightened, and slowly withdrawn. The cecum, ascending colon, hepatic flexure, transverse colon, splenic flexure, descending colon, sigmoid colon, and rectum were very well visualized. No tumors, polyps, diverticula, or angiodysplastic changes were noted anywhere throughout the lower gastrointestinal tract. Once the colonoscope was withdrawn to the rectum, it was retroflexed to visualize the anal orifice from above. No tumors or polyps were seen and there were no acute hemorrhoidal changes. The colonoscope was then straightened, the rectum aspirated, and the colonoscope removed. The patient tolerated the procedure very well. He was taken back to his room in day surgery in satisfactory condition. BRITTANY / LEONORA /[id number] MTDJenelle
[2021-05-26 12:42] VITALS: BP 107/61; PULSE 99
== END 2021-05-26 09:30 | disposition home or self-care (01) ==
LOC: MW.SDS 07:39
PROVIDERS: ATTEND Surgery
DX: Z12.11 Encounter for screening for malignant neoplasm of colon (principal); E78.5 Hyperlipidemia, unspecified; E11.9 Type 2 diabetes mellitus without complications; I50.20 Unspecified systolic (congestive) heart failure; I11.0 Hypertensive heart disease with heart failure; I25.10 Atherosclerotic heart disease of native coronary artery without angina pectoris; Z86.010 Personal history of colon polyps; Z88.0 Allergy status to penicillin; Z79.84 Long term (current) use of oral hypoglycemic drugs; Z79.899 Other long term (current) drug therapy; Z85.46 Personal history of malignant neoplasm of prostate; Z87.19 Personal history of other diseases of the digestive system
CPT/HCPCS: G0105; J2405; J2704; J7120